=== PATIENT | male | born 1970 | race Caucasian/White ===

== ENCOUNTER 2016-04-21 15:09 | Emergency (ER) | payer SELFPAY ==
[~2016-04-21] VITALS: Ht 167.6 cm; Wt 73.5 kg
[2016-04-21] MEDS ORDERED: ONDANSETRON HCL/PF 4 MG/2 ML VIAL ONE (15:27)
[2016-04-21] MEDS ORDERED: IV SET PRIMARY 1 EA INFUS.SET MC ONE (15:27)
[2016-04-21] MEDS ORDERED: IV NS 0.9% 1,000 ML ONE ×2 (15:27→16:45)
[2016-04-21 15:28] LABS: BASOPHILS % (AUTO) 0.2 % (0.0-2.0); DIFF TOTAL % 100 %; EOSINOPHILS % (AUTO) 0.1 % (0.0-6.0); HEMATOCRIT 40 % (39-51); HEMOGLOBIN 13.4 g/dL (13.5-17.5); LYMPHOCYTES # (AUTO) 0.7 /CMM (0.8-4.8); LYMPHOCYTES % (AUTO) 5.7 % (20.0-44.0); MEAN CORPUSCULAR HEMOGLOBIN 28 PG (26.0-33.0); MEAN CORPUSCULAR HGB CONC 34 g/dl (31.0-36.0); MEAN CORPUSCULAR VOLUME 84 fL (80-96); MONOCYTES # (AUTO) 0.5 /CMM (0.1-1.30); MONOCYTES % (AUTO) 3.8 % (2.0-12.0); NEUTROPHILS # (AUTO) 10.7 /CMM (1.8-8.9); NEUTROPHILS % (AUTO) 90.2 % (43.0-81.0); PLATELET COUNT (AUTO) 146 /CMM (150-450); RED BLOOD CELL COUNT(AUTO) 4.73 MIL/uL (4.5-6.0); WHITE BLOOD COUNT (AUTO) 11.9 K/uL (4.3-11.0)
[2016-04-21] MEDS ORDERED: ONDANSETRON HCL/PF 4 MG/2 ML VIAL IVP ONE (15:30)
[2016-04-21] MEDS ORDERED: IV NS 0.9% 1,000 ML BAG IV ONE (15:30)
[2016-04-21 15:41] LABS: ANION GAP 11 (5-14); CALCIUM, SERUM 8.5 mg/dL (8.5-10.1); CARBON DIOXIDE 29 mmol/L (21-32); CHLORIDE 106 mmol/L (98-107); CREATININE 1.2 mg/dL (0.6-1.3); GFR 65 mL/min (>60); GLUCOSE 176 mg/dL (74-106); POTASSIUM 5.1 mmol/L (3.5-5.1); SODIUM SERUM 141 mmol/L (136-145); UREA NITROGEN, BLOOD 16 mg/dL (7-18)
[2016-04-21 15:47] LABS: ALANINE AMINOTRANSFERASE 20 U/L (12-78); ALBUMIN 3.7 g/dL (3.4-5.0); ASPARTATE AMINOTRANSFERASE 17 U/L (15-37); BILIRUBIN,DIRECT 0.1 mg/dL (0.0-0.2); BILIRUBIN,TOTAL 0.5 mg/dL (0.2-1.0); INDIRECT BILIRUBIN 0.4 mg/dL (0.0-1.1); TOTAL PROTEIN, SERUM 6.9 g/dL (6.4-8.2)
[2016-04-21 16:42] LABS: ADD UA MICROSCOPIC NO; KETONES,URINE Negative (NEGATIVE); LEUKOCYTE ESTERASE ,URINE Negative (NEGATIVE); PH,URINE 7.5 (5.0-8.0)
[2016-04-21] MEDS ORDERED: METOCLOPRAMIDE HCL 10 MG/2 ML VIAL ONE (16:45)
[2016-04-21 16:52] LABS: PHENCYCLIDINE SCREEN,URINE NEGATIVE (NEGATIVE)
[2016-04-21 16:53] LABS: CANNABINOID, URINE POSITIVE (NEGATIVE)
[2016-04-21] MEDS ORDERED: METOCLOPRAMIDE HCL 10 MG/2 ML VIAL IV ONE (17:00)
[2016-04-21] MEDS ORDERED: IV NS 0.9% 1,000 ML IV ONE (17:00)
[2016-04-21 18:18] VITALS: BP 132/84
== END 2016-04-21 18:19 | disposition home or self-care (01) ==
LOC: ER 15:11
DX: R11.2 Nausea with vomiting, unspecified (principal); R53.1 Weakness; A69.20 Lyme disease, unspecified
CPT/HCPCS: 36415; 80048; 80076; 80305; 81001; 85025; 96374; 96375; 99284; A4606; G0480; J2405; J2765; J7030 ×2; Z7610; 81000-TC